=== PATIENT | female | born 1945 | race Asian ===

== ENCOUNTER 2016-10-27 16:30 | Inpatient (IN) | payer MEDICARE, OTHER ==
[2016-10-27] MEDS ORDERED: NORMAL SALINE 500 ML IV PRN (17:05)
--- NOTE | 2016-10-27 17:07 | ER Document Report ---
ED General - General Stated Complaint: DIZZINESS Time seen by provider: 17:06 Mode of Arrival: Medic Information source: Patient, Relative, Emergency Med Personnel Notes: This is a 71-year-old female with a history of sarcoidosis (PRN oxygen at home) , seizure disorder (status post craniotomy in 1988) who was followed at [facility]. The patient is brought in by EMS after being found face down in the kitchen right beside her recliner. It is unclear if the patient fell out of the chair slid out of the chair. The patient's son put a pulse oximeter on the patient the oxygen level was 75. He applied 4 L nasal cannula and her oxygen came back. The patient states that she said she was dizzy and her skin felt very hot. Her temperature was 103 when EMS arrived and she was given acetaminophen and 100 mL's normal saline. In the emergency room, the patient does have a nonproductive cough. She states she has felt a little dizzy. She denies any chest pain at this time. TRAVEL OUTSIDE OF THE [place] IN LAST 30 DAYS: No - HPI Onset: Just prior to arrival Onset/Duration: Sudden Quality of pain: No pain Severity: None Pain Level: Denies Associated symptoms: Chest pain, Nonproductive cough, Fever, Shortness of breath , Weakness Exacerbated by: Movement Relieved by: Remaining still - Related Data Allergies/Adverse Reactions: Sulfa (Sulfonamide Antibiotics) Allergy (Verified 10/27/16 17:49) Past Medical History - General Information source: Patient, Relative, Emergency Med Personnel - Social History Smoking Status: Unknown if Ever Smoked Cigarette use (# per day): No Chew tobacco use (# tins/day): No Frequency of alcohol use: None Drug Abuse: None Lives with: Family Family History: None Patient has suicidal ideation: No Patient has homicidal ideation: No - Past Medical History Cardiac Medical History: Reports: None Pulmonary Medical History: Reports: Other - Sarcoidosis EENT Medical History: Reports: None Neurological Medical History: Reports: Hx Seizures Endocrine Medical History: Reports: None Renal/ Medical History: Reports: None Malignancy Medical History: Reports: None GI Medical History: Reports: None Musculoskeltal Medical History: Reports None Skin Medical History: Reports None Psychiatric Medical History: Reports: None Traumatic Medical History: Reports: None Infectious Medical History: Reports: Other - History of pneumonia in the past Past Surgical History: Reports: Other - Craniotomy in 1988 Review of Systems - Review of Systems Constitutional: Chills, Fever, Weakness EENT: No symptoms reported Cardiovascular: No symptoms reported Respiratory: Cough, Short of breath. denies: Hemoptysis, Wheezing Gastrointestinal: No symptoms reported Genitourinary: No symptoms reported Female Genitourinary: No symptoms reported Musculoskeletal: No symptoms reported Skin: No symptoms reported Hematologic/Lymphatic: No symptoms reported Neurological/Psychological: See HPI Physical Exam - Vital signs Vitals: Temp Pulse Resp BP Pulse Ox 99.2 F 90 22 H 101/43 L 94 10/27/16 17:10 10/27/16 17:10 10/27/16 17:10 10/27/16 17:10 10/27/16 17:10 Notes: Physical exam: GENERAL: A 11-year-old female, alert and oriented 3, no acute distress on oxygen. HEAD: Atraumatic, normocephalic. EYES: Pupils equal round and reactive to light, extraocular movements intact, sclera anicteric, conjunctiva are normal. ENT: TMs normal, nares patent, oropharynx clear without exudates. Moist mucous membranes. NECK: Normal range of motion, supple without lymphadenopathy or JVD. LUNGS: Diffuse rhonchi bilaterally, greater on the left than the right. HEART: Regular rate and rhythm with 3/6 systolic murmur. ABDOMEN: Soft, nontender, normoactive bowel sounds. No guarding, no rebound. No masses appreciated. EXTREMITIES: Normal range of motion, no pitting or edema. No clubbing or cyanosis. NEUROLOGICAL: Cranial nerves II through XII grossly intact. Normal speech, normal gait. PSYCH: Normal mood, normal affect. SKIN: Warm, Dry, normal turgor, no rashes or lesions noted. Course - Re-evaluation Re-evalutation: 10/27/16 18:50 Note: The patient presents after syncopal event at home in which she was found face down on the floor. She was hypoxic at home (compared to her baseline). She has a chronic cough, but now has high fever (103). She does have underlying sarcoidosis. The chest x-ray shows extensive infiltrates predominantly on the left side. This is consistent with her physical exam. The concern is that there is an acute infiltrate within the chronic lung disease given her spiking high temperature, increased white count and worsening hypoxia. She was started on IV cefepime and IV vancomycin and she will be admitted to the hospital. - Vital Signs Vital signs: Temp Pulse Resp BP Pulse Ox 99.2 F 90 22 H 101/43 L 94 10/27/16 17:10 10/27/16 17:10 10/27/16 17:10 10/27/16 17:10 10/27/16 17:10 - Laboratory Result Diagrams: 10/27/16 17:20 10/27/16 17:20 Laboratory results interpreted by me: 10/27/16 10/27/16 10/27/16 17:20 17:20 17:20 WBC 12.7 H RBC 2.52 L Hgb 8.7 L Hct 26.6 L MCV 106 H MCH 34.6 H Lymphocytes % (Manual) 5 L Monocytes % (Manual) 19 H Abs Neuts (Manual) 9.4 H Abs Monocytes (Manual) 2.4 H Sodium 132.0 L Chloride 93 L Glucose 167 H Albumin 2.8 L Phenytoin < 3.0 L - Diagnostic Test Radiology reviewed: Image reviewed, Reports reviewed - Extensive opacities in the left lung. Critical Care Note - Critical Care Note Total time excluding time spent on procedures (mins): 60 Discharge - Discharge Clinical Impression: pneumonia Condition: Serious Disposition: ADMITTED INPATIENT Admitting Provider: Hospitalist - Dr. Duke Unit Admitted: IMCU Referrals: JACOBO MCFARLANE MD [Primary Care Provider] - Follow up as needed
[2016-10-27 17:37] LABS: HEMATOCRIT 26.6 % (36.0-47.0); HEMOGLOBIN 8.7 g/dL (12.0-15.5); HGB HCT DIFFERENCE -0.5; MEAN CORPUSCULAR HEMOGLOBIN 34.6 pg (27.0-33.4); MEAN CORPUSCULAR HGB CONC 32.7 g/dL (32.0-36.0); MEAN CORPUSCULAR VOLUME 106 fl (80-97); RED BLOOD COUNT 2.52 10^6/uL (3.72-5.28); WHITE BLOOD COUNT 12.7 10^3/uL (4.0-10.5)
[2016-10-27 17:54] LABS: BAND NEUTROPHILS % (MANUAL) 3 % (3-5); BASOPHILS % (MANUAL) 0 % (0-2); EOSINOPHILS % (MANUAL) 1 % (0-6); LYMPHOCYTES % (MANUAL) 5 % (13-45); TOTAL CELLS COUNTED 100
[2016-10-27 17:57] LABS: ALANINE AMINOTRANSFERASE 22 U/L (9-52); ALBUMIN 2.8 g/dL (3.5-5.0); ALKALINE PHOSPHATASE 87 U/L (38-126); ANION GAP 10 (5-19); ASPARTATE AMINO TRANSFERASE 32 U/L (14-36); BILIRUBIN,TOTAL 0.4 mg/dL (0.2-1.3); BLOOD UREA NITROGEN 14 mg/dL (7-20); CALCIUM 8.6 mg/dL (8.4-10.2); CARBON DIOXIDE 29 mmol/L (22-30); CHLORIDE 93 mmol/L (98-107); CREATININE RESULT 0.61 mg/dL (0.52-1.25); GLUCOSE 167 mg/dL (75-110); POTASSIUM 4.2 mmol/L (3.6-5.0)
[2016-10-27] MEDS ORDERED: CEFTRIAXONE 2 GM/D5W RTU 50 ML IV ONE (18:05)
[2016-10-27] MEDS ORDERED: CEFEPIME 1 GM/D5W RTU 50 ML IV ONE (18:09)
[2016-10-27] MEDS ORDERED: VANCOMYCIN HCL INJ 1000 MG VIAL IV ONE (18:09)
[2016-10-27] MEDS ORDERED: CEFEPIME 1 GM/D5W RTU 1 GM/50 ML RTUPB IV ONE ×2 (18:41→22:00)
[2016-10-27] MEDS ORDERED: NORMAL SALINE 1000 ML 1,000 ML IV PRN (18:45)
[2016-10-27 18:54] LABS: ARTERIAL BLOOD BASE EXCESS 3.7 mmol/L
--- NOTE | 2016-10-27 19:03 | PDOC H&P ---
History of Present Illness Admission Date/PCP: MILAN MCFARLANE MD Patient complains of: SOB , fever History of Present Illness: GRABIEL MALIN is a 71 year old female Who was brought to the ED with a history of fever chills and a cough Patient had been ill for week she was seen in another emergency room 4 days ago and was discharged with the diagnosis of viral syndrome Shortness of breath the fever persisted; Upon evaluation in the ED she was diagnosed of pneumonia and subsequently admitted to the hospitalist service in an IMCU unit Patient has a known history of sarcoidosis ;seizure disorder; she is status post craniotomy 1988 She is immunosuppressed on methotrexate Past Medical History Pulmonary Medical History: Reports: Other - Sarcoidosis Neurological Medical History: Reports: Seizures Past Surgical History Past Surgical History: Reports: None Social History Information Source: Patient Smoking Status: Never Smoker Frequency of Alcohol Use: None Hx Prescription Drug Abuse: No - Advance Directive Resuscitation Status: Full Code Surrogate healthcare decision maker:: hannah Shore Family History Parental Family History Reviewed: No Children Family History Reviewed: No Sibling(s) Family History Reviewed.: No Medication/Allergy Allergies/Adverse Reactions: Sulfa (Sulfonamide Antibiotics) Allergy (Verified 10/27/16 17:49) Review of Systems Constitutional: PRESENT: chills, fever(s). ABSENT: headache(s), weight gain, weight loss Eyes: ABSENT: visual disturbances Ears: ABSENT: hearing changes Cardiovascular: ABSENT: chest pain, dyspnea on exertion, edema, orthropnea, palpitations Respiratory: PRESENT: as per HPI, cough, dyspnea, sputum. ABSENT: hemoptysis Gastrointestinal: ABSENT: abdominal pain, constipation, diarrhea, hematemesis, hematochezia, nausea, vomiting Genitourinary: ABSENT: dysuria, hematuria Musculoskeletal: ABSENT: joint swelling Integumentary: ABSENT: rash, wounds Neurological: ABSENT: abnormal gait, abnormal speech, confusion, dizziness, focal weakness, syncope Psychiatric: ABSENT: anxiety, depression, homidical ideation, suicidal ideation Endocrine: ABSENT: cold intolerance, heat intolerance, polydipsia, polyuria Hematologic/Lymphatic: ABSENT: easy bleeding, easy bruising Physical Exam Vital Signs: Temp Pulse Resp BP Pulse Ox 99.2 F 90 22 H 101/43 L 94 10/27/16 17:10 10/27/16 17:10 10/27/16 17:10 10/27/16 17:10 10/27/16 17:10 Intake & Output 10/26/16 10/27/16 10/28/16 00:59 00:59 00:59 Weight 39.916 kg General appearance: PRESENT: no acute distress, well-developed, well-nourished Head exam: PRESENT: atraumatic, normocephalic Eye exam: PRESENT: conjunctiva pink, EOMI, PERRLA. ABSENT: scleral icterus Ear exam: PRESENT: normal external ear exam Mouth exam: PRESENT: moist, tongue midline Neck exam: ABSENT: carotid bruit, JVD, lymphadenopathy, thyromegaly Respiratory exam: PRESENT: crackles, retraction, rhonchi, unlabored. ABSENT: rales, tachypnea, wheezes Cardiovascular exam: PRESENT: RRR. ABSENT: diastolic murmur, rubs, systolic murmur Pulses: PRESENT: normal dorsalis pedis pul Vascular exam: PRESENT: normal capillary refill GI/Abdominal exam: PRESENT: normal bowel sounds, soft. ABSENT: distended, guarding, mass, organolmegaly, rebound, tenderness Rectal exam: PRESENT: deferred Extremities exam: PRESENT: full ROM. ABSENT: calf tenderness, clubbing, pedal edema Neurological exam: PRESENT: alert, awake, oriented to person, oriented to place , oriented to time, oriented to situation, CN II-XII grossly intact. ABSENT: motor sensory deficit Psychiatric exam: PRESENT: appropriate affect, normal mood. ABSENT: homicidal ideation, suicidal ideation Skin exam: PRESENT: dry, intact, warm. ABSENT: cyanosis, rash Results Laboratory Results: 10/27/16 17:20 10/27/16 17:20 10/27/16 10/27/16 10/27/16 17:20 17:20 17:20 WBC 12.7 H RBC 2.52 L Hgb 8.7 L Hct 26.6 L MCV 106 H MCH 34.6 H MCHC 32.7 RDW 14.0 Plt Count 273 Seg Neutrophils % Not Reportable Lymphocytes % Not Reportable Monocytes % Not Reportable Eosinophils % Not Reportable Basophils % Not Reportable Absolute Neutrophils Not Reportable Absolute Lymphocytes Not Reportable Absolute Monocytes Not Reportable Absolute Eosinophils Not Reportable Absolute Basophils Not Reportable Sodium 132.0 L Potassium 4.2 Chloride 93 L Carbon Dioxide 29 Anion Gap 10 BUN 14 Creatinine 0.61 Est GFR ( Amer) > 60 Est GFR (Non-Af Amer) > 60 Glucose 167 H Lactic Acid 1.6 Calcium 8.6 Total Bilirubin 0.4 AST 32 ALT 22 Alkaline Phosphatase 87 Total Protein 7.0 Albumin 2.8 L Impressions: Chest X-Ray 10/27/16 17:09 IMPRESSION: Progressive but otherwise chronic appearing changes. Patient appears to have significant interstitial lung disease and pulmonary fibrosis. Assessment & Plan - Time Time Spent with patient: 1 sepsis Patient is immunocompromised and has evidence of pneumonia We will start the patient with cefepime and Levaquin ; continue IV fluids and provide O2 supplementation via cannula. 2- Pneumonia Treatment as above we will obtain sputum culture Give the patient until nebs and Mucinex 3 immunosuppression We will hold methotrexate at this time 4 acute on chronic anemia Likely anemia of chronic disease Initiate a workup in the morning Patient does not need transfusion at this time 5 seizure disorder We will continue patient's present medications Patient was admitted as an inpatient to IMCU Time Spent: 50 to 70 Minutes
[2016-10-27 19:22] LABS: APPEARANCE,URINE CLEAR; BILIRUBIN,URINE NEGATIVE (NEGATIVE); GLUCOSE, URINE NEGATIVE (NEGATIVE); KETONES,URINE NEGATIVE (NEGATIVE); LEUKOCYTE ESTERASE,URINE SMALL (NEGATIVE); NITRITE,URINE NEGATIVE (NEGATIVE); PROTEIN,URINE NEGATIVE (NEGATIVE); URINE SPECIFIC GRAVITY 1.019; UROBILINOGEN,URINE NEGATIVE mg/dL (<2.0)
[2016-10-27] MEDS ORDERED: LEVOFLOXACIN 750 MG/D5W RTU 750 MG/150 ML RTUPB IV ONE (20:00)
[2016-10-27] MEDS ORDERED: FAMOTIDINE 20 MG TABLET PO ONE (22:00)
[2016-10-28] MEDS ORDERED: IPRATROPIUM/ALBUTEROL 0.5-2.5 MG/3 ML AMPUL NEB SCH (06:00)
[2016-10-28] MEDS ORDERED: ENOXAPARIN SODIUM INJ 40 MG/0.4 ML DISP.SYRIN SUBCUT SCH (08:00)
[2016-10-28] MEDS: ENOXAPARIN SODIUM INJ 30 MG/0.3 ML DISP.SYRIN SUBCUT SCH (08:56)
[2016-10-28] MEDS: CEFEPIME 1 GM/D5W RTU 1 GM/50 ML RTUPB IV SCH ×2 (09:37→22:12)
[2016-10-28 09:41] LABS: HEMATOCRIT 25.5 % (36.0-47.0); HEMOGLOBIN 8.5 g/dL (12.0-15.5); MEAN CORPUSCULAR HEMOGLOBIN 35.2 pg (27.0-33.4); MEAN CORPUSCULAR HGB CONC 33.2 g/dL (32.0-36.0); MEAN CORPUSCULAR VOLUME 106 fl (80-97); RED CELL DISTRIBUTION WIDTH 14.1 % (11.5-14.0); WHITE BLOOD COUNT 15.1 10^3/uL (4.0-10.5)
[2016-10-28 09:48] LABS: ALANINE AMINOTRANSFERASE 21 U/L (9-52); ALBUMIN 2.6 g/dL (3.5-5.0); ALKALINE PHOSPHATASE 76 U/L (38-126); ANION GAP 6 (5-19); ASPARTATE AMINO TRANSFERASE 27 U/L (14-36); BILIRUBIN,TOTAL 0.4 mg/dL (0.2-1.3); BLOOD UREA NITROGEN 8 mg/dL (7-20); CALCIUM 8.4 mg/dL (8.4-10.2); CARBON DIOXIDE 30 mmol/L (22-30); CHLORIDE 98 mmol/L (98-107); CREATININE RESULT 0.48 mg/dL (0.52-1.25); GLUCOSE 106 mg/dL (75-110); POTASSIUM 4.6 mmol/L (3.6-5.0); SODIUM 133.6 mmol/L (137-145); TOTAL PROTEIN 6.9 g/dL (6.3-8.2)
[2016-10-28 10:12] LABS: BASOPHILS % (MANUAL) 0 % (0-2); EOSINOPHILS % (MANUAL) 0 % (0-6); HYPOCHROMASIA 1+; LYMPHOCYTES % (MANUAL) 5 % (13-45); ROULEAUX 2+; STOMATOCYTES SLIGHT; TOTAL CELLS COUNTED 100; TOXIC GRANULATION 1+
[2016-10-28] MEDS ORDERED: FUROSEMIDE INJ/PF 20 MG/2 ML SDV IV ONE (12:45)
[2016-10-28] MEDS ORDERED: PREDNISONE 20 MG TABLET PO ONE (13:30)
[2016-10-28] MEDS: FAMOTIDINE 20 MG TABLET PO SCH ×2 (13:58→22:32)
--- NOTE | 2016-10-28 15:20 | Physician Advisory Note ---
Physician Advisor ProgressNote .: Pursuant to the plan for [facility], I have reviewed the medical record for this patient. Physician Advisor Statement: Possible documentation opportunities if attending agrees: 1. "possible sepsis due to pneumonia, present on admission, ruled out/in, with supporting findings of fever of 103.1 for EMS, RR22, WBC 12.7, BP 101/43 [ initial MAP 67] ..." 2. "RLL pneumonia, suspect gram-negative type given underlying lung dz & immunocompromise" 3. "chronic hypoxemic & hypercapneic respiratory failure w/pCO2 of 50.1 & baseline need for 3L O2" [Home O2 per initial ED nsg/triage note] 4. "Chronic interstitial lung dz with end-stage pulmonary fibrosis & widespread bronchiectasis" 5. Please clarify documentation of H&P 10/27 stating on PE: " ... retractions, ... unlabored, no accessory muscle use" - appears contradictory. 6. "hyponatremia, likely due to " 7. "underweight with protein-calorie malnutrition [state mild, mod, or severe] with BMI 17.2, Cr 0.48, alb 2.6, ____[?wt loss, ?appetite loss, ]" [if possible, give specifics on intake, wt loss, loss of SQ fat & muscle mass, diminished hand machine operator farmworker strength, & clinical importance such as (A) nutritional assessment ordered, (B) modified diet or supplements ordered, (C) additional labs ordered, (D) prolonged wound healing time, (E) delayed infxn clearance] - - - Auditors are strict about the dx of malnutrition - has to be explicitly spelled out. As always, if concerned about any unstable VS or abnormal labs, please comment on them & note what doing about them, & please document each day the potential clinical problems you are concerned could occur if pt not kept in hospital for tx at this time. Status: 71yo w/sarcoidosis & MTX immunosuppression, chronic hypercarbia, underlying severely abnormal lung parenchyma, widespread bronchiectasis, findings of advanced end-stage pulm fibrosis by CT, anemia, previous craniotomy & sz d/o, presented with F/C/cough/SOB/sputum x 1wk that was failing outpt mgmt from ED 4 days prior. ED nurse documents EMS found temp 103.1 & gave Tylenol. Initial sats reportedly 75% but that was on RA for family, pt usually on 3L O2; sat 94% for EMS on O2 2 or 3L. Came in with leukocytosis of 12.7 (prior to any steroids being given), HR 90, tachypnea of 22, BP 101/43, temp 99.2, crackles, rhonchi, retractions, pCO2 of 50.1 w/pH 7.39, Hgb 8.9, Na 132, lactate 1.6. H&P documents (+)retractions present. Her underlying co-morbidities make any new pulmonary decompensation/insult to be much highe risk for morbidity & mortality. Her increased work of breathing per H&P, & tachypnea indicate that much higher risk of Acute Resp Failure developing. After 1MN of hospital care, pt's leukocytosis has worsened to 15.1, prior to receiving any steroids (prednisone po given 10/28 at 14:01), TIBC is 181 consistent with chronic anemia of chronic ___ dz, & BNP is quite abnormal at 1450 (which can indicate presence of CHF, but also increase with ischemia, hypotension, pulmonary HTN, cor pulmonale, sepsis). She has had recurrent tachypnea & tachycardia. Pt clearly not safe for d/c home today, needs continued aggressive tx & close monitoring of clinical status/response, high risk for morbidity/mortality. Tx in inpatient hospital setting medically reasonable & necessary to protect pt' s health, safety, & medical condition. Appropriate for Inpt status. Thanks for your help with documentation accuracy/specificity improvement! Erika Galarza MD [facility] Physician Advisor, Fellow of Hospital Medicine
--- NOTE | 2016-10-28 15:23 | PDOC PROGRESS REPORT ---
Subjective Progress Note for:: 10/28/16 Subjective:: SOB still persistent no pleuritic chest pain CTA chest was performed and showed advanced pulmonary fibrosis , right upper lobe infiltrate no PE Echo is pending DR Steven Dumont will be consulting on the case Physical Exam Vital Signs: Temp Pulse Resp BP Pulse Ox 98.9 F 90 21 H 119/57 L 100 10/28/16 09:01 10/27/16 17:10 10/28/16 09:01 10/28/16 09:01 10/28/16 08:49 General appearance: PRESENT: mild distress, thin Head exam: PRESENT: atraumatic, normocephalic Eye exam: PRESENT: conjunctiva pink, EOMI, PERRLA. ABSENT: scleral icterus Neck exam: ABSENT: carotid bruit, JVD, lymphadenopathy, thyromegaly Respiratory exam: PRESENT: decreased breath sounds, rales - bilaterally, tachypnea Cardiovascular exam: PRESENT: RRR, tachycardia. ABSENT: diastolic murmur, rubs , systolic murmur Vascular exam: PRESENT: normal capillary refill Extremities exam: PRESENT: full ROM. ABSENT: calf tenderness, clubbing, pedal edema Neurological exam: PRESENT: alert, awake, oriented to person, oriented to place , oriented to time, oriented to situation, CN II-XII grossly intact. ABSENT: motor sensory deficit Psychiatric exam: PRESENT: appropriate affect, normal mood. ABSENT: homicidal ideation, suicidal ideation Skin exam: PRESENT: dry, intact, warm. ABSENT: cyanosis, rash Results Laboratory Results: 10/28/16 09:21 10/28/16 09:21 10/27/16 10/28/16 10/28/16 18:58 09:21 09:21 WBC 15.1 H RBC 2.40 L Hgb 8.5 L Hct 25.5 L MCV 106 H MCH 35.2 H MCHC 33.2 RDW 14.1 H Plt Count 293 Seg Neutrophils % Not Reportable Lymphocytes % Not Reportable Monocytes % Not Reportable Eosinophils % Not Reportable Basophils % Not Reportable Absolute Neutrophils Not Reportable Absolute Lymphocytes Not Reportable Absolute Monocytes Not Reportable Absolute Eosinophils Not Reportable Absolute Basophils Not Reportable Retic Count (auto) 1.21 Absolute Retic 0.029 Sodium 133.6 L Potassium 4.6 Chloride 98 Carbon Dioxide 30 Anion Gap 6 BUN 8 Creatinine 0.48 L Est GFR ( Amer) > 60 Est GFR (Non-Af Amer) > 60 Glucose 106 Calcium 8.4 Iron 43 TIBC 181 L % Saturation 24 Ferritin 306.00 H Total Bilirubin 0.4 AST 27 ALT 21 Alkaline Phosphatase 76 Total Protein 6.9 Albumin 2.6 L Vitamin B12 > 1000.0 H Folate 17.40 TSH Urine Color YELLOW Urine Appearance CLEAR Urine pH 6.0 Ur Specific [place] 1.019 Urine Protein NEGATIVE Urine Glucose (UA) NEGATIVE Urine Ketones NEGATIVE Urine Blood SMALL H Urine Nitrite NEGATIVE Ur Leukocyte Esterase SMALL H Urine WBC (Auto) 3 Urine RBC (Auto) 7 10/28/16 09:21 WBC RBC Hgb Hct MCV MCH MCHC RDW Plt Count Seg Neutrophils % Lymphocytes % Monocytes % Eosinophils % Basophils % Absolute Neutrophils Absolute Lymphocytes Absolute Monocytes Absolute Eosinophils Absolute Basophils Retic Count (auto) Absolute Retic Sodium Potassium Chloride Carbon Dioxide Anion Gap BUN Creatinine Est GFR ( Amer) Est GFR (Non-Af Amer) Glucose Calcium Iron TIBC % Saturation Ferritin Total Bilirubin AST ALT Alkaline Phosphatase Total Protein Albumin Vitamin B12 Folate TSH 1.12 Urine Color Urine Appearance Urine pH Ur Specific [place] Urine Protein Urine Glucose (UA) Urine Ketones Urine Blood Urine Nitrite Ur Leukocyte Esterase Urine WBC (Auto) Urine RBC (Auto) 10/28/16 09:21 NT-Pro-B Natriuret Pep 1450 H Impressions: Chest X-Ray 10/27/16 17:09 IMPRESSION: Progressive but otherwise chronic appearing changes. Patient appears to have significant interstitial lung disease and pulmonary fibrosis. Chest/Abdomen CTA 10/28/16 11:32 IMPRESSION: No CT angio evidence of acute pulmonary emboli Airspace disease in the superior segment right lower lobe worrisome for pneumonia Advanced obstructive lung disease and pulmonary fibrosis Assessment & Plan - Time Time Spent with patient: Time Spent with patient: 1 sepsis Patient is immunocompromised and has evidence of pneumonia We will start the patient with cefepime and Levaquin ; continue IV fluids and provide O2 supplementation via cannula. CTA chest confirmed pneumonia with infiltrate RtUL 2- Pneumonia Treatment as above we will obtain sputum culture Give the patient until nebs and Mucinex 3 immunosuppression We will hold methotrexate at this time 4 acute on chronic anemia Likely anemia of chronic disease Initiate a workup in the morning Patient does not need transfusion at this time 5 seizure disorder We will continue patient's present medications 6-pulmonary fibrosis -sarcoidosis secondary fo sarcoidosis ? could there be methotrexate toxicity CBC does not show eosinophilia - CT not suggestive Pulmonary consult obtained - in mean time we held methotrexate and initiated steroids 7- elevated BNP may be related to pulmonary hypertension and right sided heart failure siriae miley - Echo pending Within: within 72 hours
[2016-10-28] MEDS ORDERED: ACETAMINOPHEN 325 MG TABLET PO PRN (15:49)
[2016-10-28] MEDS: LEVOFLOXACIN 750 MG/D5W RTU 750 MG/150 ML RTUPB IV SCH (17:37)
[2016-10-28] MEDS: DIVALPROEX SODIUM 250 MG TABLET.DR PO SCH (17:39)
[2016-10-28] MEDS ORDERED: (PENDING PHARMACY ID) (Divalproex Sodium [Depakote] 500 MG) PO SCH (18:00)
--- NOTE | 2016-10-28 18:07 | XCELERA REPORT ---
[address] [address] Transthoracic Echocardiogram Report Name: GRABIEL MALIN Age: 71 yrs Gender: Female : 1945 Patient Status: Inpatient Patient Location: \S\[facility] [place]\S\A Study Date: 10/28/2016 02:53 PM Height: 60 in Weight: 88 lb BSA: 1.3 m2 Procedure: A two-dimensional transthoracic echocardiogram with color flow and Doppler was performed. The study was technically limited with all images being suboptimal in quality. Reason For Study: SONB elevated BNP History: Shortness of breath. ELEVATED BNP. Ordering Physician: CHIRAG PIÑA Performed By: Margot Paige Interpretation Summary The left ventricle is normal in size. There is normal left ventricular wall thickness. LV EF is > than 65% Left ventricular systolic function is normal. Doppler measurements suggest impaired left ventricular relaxation, which is associated with grade I/IV or mild diastolic dysfunction The left ventricular wall motion is normal. The left atrial size is normal. There is no evidence of mitral valve prolapse. There is no vegetation seen on the mitral valve. There is no mitral valve stenosis. There is a mild amount of mitral regurgitation There is no aortic valve stenosis There is no LVOT obstruction. No aortic regurgitation is present. There is no tricuspid stenosis. There is a mild amount of tricuspid regurgitation There is mild pulmonary hypertension by echo RVSP is 37 mm of Hg , with a RA mean of 10. The aortic root is normal size. There is no pericardial effusion. MMode/2D Measurements \T\ Calculations RVDd: 2.1 cm LVIDd: 3.3 cm FS: 40.7 % Ao root diam: 1.9 cm IVSd: 0.87 cm LVIDs: 1.9 cm EDV(Teich): 43.1 ml LVPWd: 0.85 cm ESV(Teich): 11.8 ml Ao root area: 2.8 cm2 EF(Teich): 72.7 % LA dimension: 2.7 cm Doppler Measurements \T\ Calculations MV E max lucero: MV P1/2t max lucero: Ao V2 max: LV V1 max P.6 cm/sec 69.6 cm/sec 132.1 cm/sec 5.9 mmHg MV A max lucero: MV P1/2t: 56.9 msec Ao max PG: LV V1 max: 84.4 cm/sec 7.0 mmHg 121.4 cm/sec MV E/A: 0.82 MVA(P1/2t): 3.9 cm2 MV dec slope: 358.2 cm/sec2 MV dec time: 0.19 sec PA V2 max: PI end-d lucero: TR max lucero: 127.8 cm/sec 214.5 cm/sec 259.3 cm/sec PA max PG: TR max P.5 mmHg 26.9 mmHg Left Ventricle The left ventricle is normal in size. There is normal left ventricular wall thickness. LV EF is > than 65%. Left ventricular systolic function is normal. Doppler measurements suggest impaired left ventricular relaxation, which is associated with grade I/IV or mild diastolic dysfunction. The left ventricular wall motion is normal. There is no thrombus. Right Ventricle The right ventricle is normal in size and function. Atria The right atrium is normal. The left atrial size is normal. Mitral Valve There is no evidence of mitral valve prolapse. There is no vegetation seen on the mitral valve. There is no mitral valve stenosis. There is a mild amount of mitral regurgitation. Aortic Valve The aortic valve is trileaflet. The aortic valve opens well. There is no aortic valvular vegetation. There is no aortic valve stenosis. There is no LVOT obstruction. No aortic regurgitation is present. Tricuspid Valve There is no tricuspid stenosis. There is a mild amount of tricuspid regurgitation. There is mild pulmonary hypertension by echo. RVSP is 37 mm of Hg , with a RA mean of 10. Pulmonic Valve There is no pulmonic valvular stenosis. There is a mild amount of pulmonic regurgitation. Great Vessels The aortic root is normal size. Effusions There is no pericardial effusion. : CHIRAG PIÑA > Tara Wiseman
[2016-10-28] MEDS: IPRATROPIUM/ALBUTEROL 0.5-2.5 MG/3 ML AMPUL NEB SCH (20:15)
[2016-10-28] MEDS: LANSOPRAZOLE 30 MG TAB.RAP.DR PO SCH (22:32)
[2016-10-28] MEDS: FOLIC ACID 1 MG TABLET PO SCH (22:32)
[2016-10-28] MEDS: FLUTICASONE/SALMETEROL DISKUS 250-50 MCG/DOSE IH SCH (22:32)
[2016-10-28] MEDS: PHENYTOIN SODIUM EXTENDED 100 MG CAPSULE PO SCH (22:33)
--- NOTE | 2016-10-28 23:55 | EKG REPORT ---
SEVERITY:- ABNORMAL ECG - SINUS RHYTHM ATRIAL PREMATURE COMPLEX PROBABLE LEFT ATRIAL ABNORMALITY LEFT VENTRICULAR HYPERTROPHY ABNORMAL T, CONSIDER ISCHEMIA, ANT-LAT LEADS : Confirmed by: Julienne Esteves 28-Oct-2016 23:54:56
[2016-10-29] MEDS: DIVALPROEX SODIUM 250 MG TABLET.DR PO SCH ×2 (05:28→21:43)
[2016-10-29] MEDS: IPRATROPIUM/ALBUTEROL 0.5-2.5 MG/3 ML AMPUL NEB SCH ×3 (08:06→20:16)
[2016-10-29] MEDS: PHENYTOIN SODIUM EXTENDED 100 MG CAPSULE PO SCH ×2 (09:29→21:42)
[2016-10-29] MEDS: FAMOTIDINE 20 MG TABLET PO SCH ×2 (09:30→21:43)
[2016-10-29] MEDS: PREDNISONE 20 MG TABLET PO SCH (09:30)
[2016-10-29] MEDS: CEFEPIME 1 GM/D5W RTU 1 GM/50 ML RTUPB IV SCH ×2 (09:31→21:42)
[2016-10-29] MEDS: LORATADINE 10 MG TABLET PO SCH (09:31)
[2016-10-29] MEDS: FLUTICASONE/SALMETEROL DISKUS 250-50 MCG/DOSE IH SCH ×2 (09:32→21:43)
[2016-10-29] MEDS: ENOXAPARIN SODIUM INJ 30 MG/0.3 ML DISP.SYRIN SUBCUT SCH (09:32)
[2016-10-29] MEDS ORDERED: PREDNISONE 20 MG TABLET PO SCH ×2 (10:00)
--- NOTE | 2016-10-29 13:28 | PDOC PROGRESS REPORT ---
Subjective Progress Note for:: 10/29/16 Subjective:: GRABIEL MALIN is a 71 year old female Who was brought to the ED with a history of fever chills and a cough Patient had been ill for week she was seen in another emergency room 4 days ago and was discharged with the diagnosis of viral syndrome Shortness of breath the fever persisted; Upon evaluation in the ED she was diagnosed of pneumonia and subsequently admitted to the hospitalist service in an IMCU unit Patient has a known history of sarcoidosis ;seizure disorder; she is status post craniotomy 1989 She is immunosuppressed on methotrexate CTA chest was performed and showed advanced pulmonary fibrosis , right upper lobe infiltrate no PE. echo shows FE>65%, mild TR, mild HTN, Gr1 DD; no wall motion abnl's. Some improved today, states her breathing is improved. Continues with cough nonproductive. ROS: Total 10 systems are reviewed with the patient pertinent positives and negatives noted about her main systems are negative. Physical Exam Vital Signs: Temp Pulse Resp BP Pulse Ox 97.3 F 74 18 105/66 100 10/29/16 11:33 10/29/16 11:33 10/29/16 11:33 10/29/16 11:33 10/29/16 11:33 Intake & Output 10/28/16 10/29/16 10/30/16 06:59 06:59 06:59 Intake Total 135 Balance 135 Weight 45.3 kg General appearance: PRESENT: no acute distress, thin Head exam: PRESENT: atraumatic, normocephalic Eye exam: PRESENT: conjunctiva pink, EOMI, PERRLA. ABSENT: scleral icterus Mouth exam: PRESENT: moist, tongue midline Neck exam: ABSENT: JVD, lymphadenopathy Respiratory exam: PRESENT: rhonchi - Diffuse rhonchi. ABSENT: accessory muscle use, prolonged expiratory phas Cardiovascular exam: PRESENT: RRR. ABSENT: diastolic murmur, rubs, systolic murmur Pulses: PRESENT: normal radial pulses GI/Abdominal exam: PRESENT: normal bowel sounds, soft. ABSENT: distended, guarding, rebound, tenderness Extremities exam: ABSENT: calf tenderness, pedal edema Musculoskeletal exam: PRESENT: ambulatory Neurological exam: PRESENT: alert, awake, oriented to person, oriented to place , oriented to time Psychiatric exam: PRESENT: appropriate affect, normal mood Skin exam: PRESENT: dry, warm Results Laboratory Results: 10/28/16 09:21 10/28/16 09:21 10/28/16 10/28/16 10/29/16 09:21 19:30 01:34 Troponin I < 0.012 < 0.012 NT-Pro-B Natriuret Pep 1450 H 10/29/16 07:10 Troponin I < 0.012 NT-Pro-B Natriuret Pep Impressions: Chest X-Ray 10/27/16 17:09 IMPRESSION: Progressive but otherwise chronic appearing changes. Patient appears to have significant interstitial lung disease and pulmonary fibrosis. Chest/Abdomen CTA 10/28/16 11:32 IMPRESSION: No CT angio evidence of acute pulmonary emboli Airspace disease in the superior segment right lower lobe worrisome for pneumonia Advanced obstructive lung disease and pulmonary fibrosis Assessment & Plan - Diagnosis (1) Pneumonia Qualifiers: Pneumonia type: due to unspecified organism Is this a current diagnosis for this admission?: YesPlan: Immunosuppressed and at risk for gram-negative organisms and atypical organisms. Continue cefepime and Levaquin. No history of MRSA. (2) Sepsis Is this a current diagnosis for this admission?: YesPlan: Stable. Evidenced by leukocytosis and tachypnea with source (3) Immunosuppression Is this a current diagnosis for this admission?: YesPlan: Hold methotrexate. (4) Chronic anemia Is this a current diagnosis for this admission?: YesPlan: Stable H&H. No evidence for acute blood loss. (5) Seizure disorder Is this a current diagnosis for this admission?: YesPlan: Stable (6) Pulmonary fibrosis Is this a current diagnosis for this admission?: YesPlan: Sees Dr. Reilly asphalt roller operator at [facility]. Awaiting Dr. Harris to evaluate. Continue systemic steroids. (7) Elevated brain natriuretic peptide (BNP) level Is this a current diagnosis for this admission?: YesPlan: Unclear etiology. Unclear significance. Possibly right heart failure acutely due to respiratory distress, possibly due to diastolic dysfunction. (8) Sarcoidosis of lung Is this a current diagnosis for this admission?: YesPlan: As above - Time Time Spent with patient: 35 or more minutes Anticipated discharge: Home Within: within 48 hours - Case discussed with she and her son at the bedside all questions asked and answered to their satisfaction and they are in agreement with the treatment plan outlined.
[2016-10-29] MEDS: LEVOFLOXACIN 750 MG/D5W RTU 750 MG/150 ML RTUPB IV SCH (17:31)
[2016-10-29] MEDS: LACTOBACILLUS ACIDOPHILUS 250 MG TAB PO SCH (17:32)
[2016-10-29] MEDS: FOLIC ACID 1 MG TABLET PO SCH (21:42)
[2016-10-29] MEDS: LANSOPRAZOLE 30 MG TAB.RAP.DR PO SCH (21:42)
[2016-10-30] MEDS: IPRATROPIUM/ALBUTEROL 0.5-2.5 MG/3 ML AMPUL NEB SCH ×3 (08:34→20:44)
[2016-10-30] MEDS: ENOXAPARIN SODIUM INJ 30 MG/0.3 ML DISP.SYRIN SUBCUT SCH (09:49)
[2016-10-30] MEDS: DIVALPROEX SODIUM 250 MG TABLET.DR PO SCH ×2 (09:50→22:24)
[2016-10-30] MEDS: PREDNISONE 20 MG TABLET PO SCH (09:50)
[2016-10-30] MEDS: PHENYTOIN SODIUM EXTENDED 100 MG CAPSULE PO SCH ×2 (09:51→22:24)
[2016-10-30] MEDS: LACTOBACILLUS ACIDOPHILUS 250 MG TAB PO SCH ×2 (09:51→18:31)
[2016-10-30] MEDS: CEFEPIME 1 GM/D5W RTU 1 GM/50 ML RTUPB IV SCH ×2 (09:52→22:23)
[2016-10-30] MEDS: LORATADINE 10 MG TABLET PO SCH (09:52)
[2016-10-30] MEDS: FAMOTIDINE 20 MG TABLET PO SCH ×2 (09:52→22:24)
[2016-10-30] MEDS: FLUTICASONE/SALMETEROL DISKUS 250-50 MCG/DOSE IH SCH ×2 (09:53→22:23)
--- NOTE | 2016-10-30 12:01 | PDOC PROGRESS REPORT ---
Subjective Progress Note for:: 10/30/16 Subjective:: GRABIEL MALIN is a 71 year old female Who was brought to the ED with a history of fever chills and a cough Patient had been ill for week she was seen in another emergency room 4 days ago and was discharged with the diagnosis of viral syndrome Shortness of breath the fever persisted; Upon evaluation in the ED she was diagnosed of pneumonia and subsequently admitted to the hospitalist service in an IMCU unit Patient has a known history of sarcoidosis with pulmonary fibrosis ;seizure disorder; she is status post craniotomy 1989 She is immunosuppressed on methotrexate CTA chest was performed and showed advanced pulmonary fibrosis , right upper lobe infiltrate no PE. echo shows FE>65%, mild TR, mild HTN, Gr1 DD; no wall motion abnl's. Some improved today, states her breathing is improved. Continues with cough nonproductive. Has successfully weaned off supplemental O2. Feels very weak. ROS: Total 10 systems are reviewed with the patient pertinent positives and negatives noted about her main systems are negative. Physical Exam Vital Signs: Temp Pulse Resp BP Pulse Ox 97.5 F 89 16 124/62 99 10/30/16 07:25 10/30/16 08:34 10/30/16 08:34 10/30/16 07:25 10/30/16 08:34 Intake & Output 10/29/16 10/30/16 10/31/16 06:59 06:59 06:59 Intake Total 135 895 Balance 135 895 Weight 45.3 kg 46 kg General appearance: PRESENT: no acute distress, thin Head exam: PRESENT: atraumatic, normocephalic Eye exam: PRESENT: conjunctiva pink, EOMI, PERRLA. ABSENT: scleral icterus Neck exam: ABSENT: JVD, lymphadenopathy Respiratory exam: PRESENT: rhonchi - Diffuse, mildly improved, unlabored. ABSENT: accessory muscle use Cardiovascular exam: PRESENT: RRR. ABSENT: diastolic murmur, rubs, systolic murmur Pulses: PRESENT: normal radial pulses Vascular exam: PRESENT: normal capillary refill GI/Abdominal exam: PRESENT: normal bowel sounds, soft. ABSENT: distended, guarding, rebound, tenderness Rectal exam: PRESENT: deferred Extremities exam: ABSENT: calf tenderness, pedal edema Musculoskeletal exam: PRESENT: ambulatory, full ROM Neurological exam: PRESENT: alert, awake, oriented to person, oriented to place , oriented to situation Psychiatric exam: PRESENT: appropriate affect, normal mood Skin exam: PRESENT: dry, warm Results Laboratory Results: 10/28/16 09:21 10/28/16 09:21 10/29/16 19:10 Stool Occult Blood NEGATIVE 10/28/16 10/28/16 10/29/16 09:21 19:30 01:34 Troponin I < 0.012 < 0.012 NT-Pro-B Natriuret Pep 1450 H 10/29/16 07:10 Troponin I < 0.012 NT-Pro-B Natriuret Pep Impressions: Chest X-Ray 10/27/16 17:09 IMPRESSION: Progressive but otherwise chronic appearing changes. Patient appears to have significant interstitial lung disease and pulmonary fibrosis. Chest/Abdomen CTA 10/28/16 11:32 IMPRESSION: No CT angio evidence of acute pulmonary emboli Airspace disease in the superior segment right lower lobe worrisome for pneumonia Advanced obstructive lung disease and pulmonary fibrosis Assessment & Plan - Diagnosis (1) Pneumonia Qualifiers: Pneumonia type: due to unspecified organism Is this a current diagnosis for this admission?: YesPlan: Immunosuppressed and at risk for gram-negative organisms and atypical organisms. Continue cefepime and Levaquin. No history of MRSA. (2) Sepsis Is this a current diagnosis for this admission?: YesPlan: Stable. Evidenced by leukocytosis and tachypnea with source (3) Immunosuppression Is this a current diagnosis for this admission?: YesPlan: Hold methotrexate. (4) Chronic anemia Is this a current diagnosis for this admission?: YesPlan: Stable H&H. No evidence for acute blood loss. Repeat labs in a.m. (5) Seizure disorder Is this a current diagnosis for this admission?: YesPlan: Stable (6) Pulmonary fibrosis Is this a current diagnosis for this admission?: YesPlan: Sees Dr. Reilly housing assistant property manager at [facility]. Awaiting Dr. Harris to evaluate. Continue systemic steroids. (7) Elevated brain natriuretic peptide (BNP) level Is this a current diagnosis for this admission?: YesPlan: Unclear etiology. Unclear significance. Possibly right heart failure acutely due to respiratory distress, possibly due to diastolic dysfunction. (8) Sarcoidosis of lung Is this a current diagnosis for this admission?: YesPlan: As above - Time Time Spent with patient: 25-34 minutes Anticipated discharge: Home Within: within 24 hours - Possibly home tomorrow if condition continues to improve. Awaiting pulmonology's input.
[2016-10-30] MEDS: FOLIC ACID 1 MG TABLET PO SCH (22:24)
[2016-10-30] MEDS: LANSOPRAZOLE 30 MG TAB.RAP.DR PO SCH (23:18)
[2016-10-31 05:00] LABS: HEMATOCRIT 26.4 % (36.0-47.0); HGB HCT DIFFERENCE 0.6; MEAN CORPUSCULAR HEMOGLOBIN 35.9 pg (27.0-33.4); MEAN CORPUSCULAR VOLUME 106 fl (80-97); RED CELL DISTRIBUTION WIDTH 14.4 % (11.5-14.0); WHITE BLOOD COUNT 10.6 10^3/uL (4.0-10.5)
[2016-10-31 05:13] LABS: BAND NEUTROPHILS % (MANUAL) 3 % (3-5); BASOPHILS % (MANUAL) 0 % (0-2); EOSINOPHILS % (MANUAL) 0 % (0-6); LYMPHOCYTES % (MANUAL) 8 % (13-45); TOTAL CELLS COUNTED 100
[2016-10-31 05:15] LABS: TOXIC VACUOLATION PRESENT
[2016-10-31] MEDS: IPRATROPIUM/ALBUTEROL 0.5-2.5 MG/3 ML AMPUL NEB SCH ×2 (08:08→13:50)
[2016-10-31] MEDS: ENOXAPARIN SODIUM INJ 30 MG/0.3 ML DISP.SYRIN SUBCUT SCH (09:02)
[2016-10-31] MEDS: CEFEPIME 1 GM/D5W RTU 1 GM/50 ML RTUPB IV SCH (10:51)
[2016-10-31] MEDS: FLUTICASONE/SALMETEROL DISKUS 250-50 MCG/DOSE IH SCH (10:51)
[2016-10-31] MEDS: PREDNISONE 20 MG TABLET PO SCH (10:52)
[2016-10-31] MEDS: DIVALPROEX SODIUM 250 MG TABLET.DR PO SCH (10:52)
[2016-10-31] MEDS: LORATADINE 10 MG TABLET PO SCH (10:52)
[2016-10-31] MEDS: FAMOTIDINE 20 MG TABLET PO SCH (10:53)
[2016-10-31] MEDS: LACTOBACILLUS ACIDOPHILUS 250 MG TAB PO SCH (10:53)
[2016-10-31] MEDS: PHENYTOIN SODIUM EXTENDED 100 MG CAPSULE PO SCH (10:53)
[2016-10-31 13:00] VITALS: BP 144/59
--- NOTE | 2016-10-31 14:58 | PDOC DISCHARGE SUMMARY ---
General - Admit/Disc Date/PCP Admission Date/Primary Care Provider: 10/27/16 18:45 MILAN MCFARLANE MD Discharge Date: 10/31/16 - Discharge Diagnosis (1) Pneumonia Is this a current diagnosis for this admission?: YesSummary: Markedly improved from presentation. Continue an additional 2 weeks of Levaquin. No specific pathogen ever identified. At risk for gram-negative organisms given the severity of her pulmonary fibrosis and fixed lung disease. (2) Sepsis Is this a current diagnosis for this admission?: Yes (3) Immunosuppression Is this a current diagnosis for this admission?: YesSummary: Continue systemic steroids with a long 3 week taper of prednisone hold methotrexate in the interim to allow her to recover from this pneumonia as best possible. Defer to her primary care provider and/or reverberatory skimmer regarding reinitiation of immunosuppressive therapy. (4) Chronic anemia Is this a current diagnosis for this admission?: YesSummary: Stable, no evidence for acute blood loss during this admission. (5) Seizure disorder Is this a current diagnosis for this admission?: Yes (6) Pulmonary fibrosis Is this a current diagnosis for this admission?: YesSummary: I spoke with Dr. Harris and he agrees with a long slow slow steroid taper, continue antibiotics, inhaled steroid and beta agonist and wants to see her in urgent follow-up within a week. (7) Elevated brain natriuretic peptide (BNP) level Is this a current diagnosis for this admission?: YesSummary: Unclear etiology, echo was unrevealing, I suspect related to her underlying respiratory disease. (8) Sarcoidosis of lung Is this a current diagnosis for this admission?: YesSummary: Defer to pulmonology regarding further treatment. - Additional Information Resuscitation Status: Full Code Discharge Diet: As Tolerated Discharge Activity: Activity As Tolerated Home Medications: Divalproex Sodium [Depakote] 500 mg PO Q12 10/27/16 Esomeprazole Magnesium [Nexium] 40 mg PO QHS 10/27/16 Fexofenadine HCl [Sara] 180 mg PO DAILY 10/27/16 Fluticasone/Salmeterol [Advair 250-50 Diskus 14 Dose/Diskus] 1 puff IH BID 10/27 Folic Acid 1 mg PO QHS 10/27/16 Phenytoin Sodium Extended [Dilantin 100 mg Capsule.er] 100 mg PO Q12 10/27/16 Acetaminophen [Tylenol 325 mg Tablet] 650 mg PO Q4HP PRN tablet 10/31/16 Lactobacillus Acidophilus [Acidophilus Probiotic] 1 mg PO BIDACBL #60 capsule Levofloxacin [Levaquin 750 mg Tablet] 750 mg PO QAM #14 tablet 10/31/16 Prednisone [Deltasone 20 mg Tablet] 60 mg PO DAILY #35 tablet 10/31/16 History of Present Illness Patient complains of: fever chills and a cough History of Present Illness: GRABIEL MALIN is a 71 year old female Who was brought to the ED with a history of fever chills and a cough Patient had been ill for week she was seen in another emergency room 4 days ago and was discharged with the diagnosis of viral syndrome Shortness of breath the fever persisted; Upon evaluation in the ED she was diagnosed of pneumonia and subsequently admitted to the hospitalist service in an IM unit Hospital Course Hospital Course: Patient has a known history of sarcoidosis with pulmonary fibrosis ;seizure disorder; she is status post craniotomy 1988 She is immunosuppressed on methotrexate CTA chest was performed and showed advanced pulmonary fibrosis , right upper lobe infiltrate no PE. echo shows FE>65%, mild TR, mild HTN, Gr1 DD; no wall motion abnl's. Continue to improve daily with high-dose systemic steroids and dual antibiotic therapy. States her breathing is improve and back to baseline, she was weaned off supplemental O2 2 days ago. Continues with cough nonproductive. At this point she is ambulatory and functional and is stable for discharge home. Physical Exam Vital Signs: Temp Pulse Resp BP Pulse Ox 97.4 F 98 14 144/59 H 96 10/31/16 12:33 10/31/16 13:50 10/31/16 13:50 10/31/16 12:32 10/31/16 13:50 Intake & Output 10/30/16 10/31/16 11/01/16 06:59 06:59 06:59 Intake Total 895 2566 474 Balance 895 2566 474 Weight 46 kg 45.3 kg EXAM GENERAL: NAD; well developed, very thin; no obese; alert and oriented to person , place, time, situation HEENT: normocephalic, atraumatic; no conjunctival injection, no scleral icterus ; oral mucosa moist; RESPIRATORY: no accessory muscle use, no increased WOB, good air entry bilaterally; no wheezes, diffuse rhonchi; diffuse inspiratory crackles CARDIO: no JVD; RRR; no systolic murmur; no tachycardia GI: soft; nondistended; normal bowel sounds; no hepato spleno megaly; no rebound, rigidity, guarding; nontender; tolerating diet VASCULAR: no carotid bruit; no abdominal bruit; no pallor; 2+ radial, DP pulse ; normal capillary refill EXTREMITIES: no calf tender; no palpable cords in calf; no clubbing, cyanosis , pedal edema PSYCH: normal affect, normal mood SKIN: warm; moist; no petechiae; no telengectasias; no jaundice; no rash Results Laboratory Results: 10/31/16 04:09 10/28/16 09:21 10/31/16 04:09 WBC 10.6 H RBC 2.50 L Hgb 9.0 L Hct 26.4 L MCV 106 H MCH 35.9 H MCHC 34.0 RDW 14.4 H Plt Count 387 Seg Neutrophils % Not Reportable Lymphocytes % Not Reportable Monocytes % Not Reportable Eosinophils % Not Reportable Basophils % Not Reportable Absolute Neutrophils Not Reportable Absolute Lymphocytes Not Reportable Absolute Monocytes Not Reportable Absolute Eosinophils Not Reportable Absolute Basophils Not Reportable 10/27/16 18:58 Clean Catch Midstream Urine Culture - Final Mixed Urogenital Sandy 10/28/16 10/28/16 10/29/16 09:21 19:30 01:34 Troponin I < 0.012 < 0.012 NT-Pro-B Natriuret Pep 1450 H 10/29/16 07:10 Troponin I < 0.012 NT-Pro-B Natriuret Pep Impressions: Chest X-Ray 10/27/16 17:09 IMPRESSION: Progressive but otherwise chronic appearing changes. Patient appears to have significant interstitial lung disease and pulmonary fibrosis. Chest/Abdomen CTA 10/28/16 11:32 IMPRESSION: No CT angio evidence of acute pulmonary emboli Airspace disease in the superior segment right lower lobe worrisome for pneumonia Advanced obstructive lung disease and pulmonary fibrosis Qualifiers PATEINT BEING DISCHARGED WITH ANY OF THE FOLLOWING DIAGNOSIS?: No Plan Discharge Plan: Discharged home on long steroid taper, continue antibiotic therapy, and close pulmonary follow-up as an outpatient. She expresses no concerns me about discharge home today. I spoke with her son David and likewise he is agreeable to discharge home today. Return to the emergency department for recurrent or worsening symptoms. Follow up with her primary care provider in 2 weeks, follow -up with pulmonology in one week
[2016-10-31] MEDS ORDERED: LEVOFLOXACIN 750 MG TABLET PO SCH (18:00)
== END 2016-10-31 16:15 | disposition home or self-care (01) | DRG 871 ==
LOC: ER 16:30 → EH 18:45 → 3W 10-28 16:29
PROVIDERS: ADMIT Emergency Medicine; ATTEND Emergency Medicine
DX: A41.9 Sepsis, unspecified organism (principal); J18.9 Pneumonia, unspecified organism; D63.8 Anemia in other chronic diseases classified elsewhere; J84.10 Pulmonary fibrosis, unspecified; D86.0 Sarcoidosis of lung; G40.909 Epilepsy, unspecified, not intractable, without status epilepticus; R79.89 Other specified abnormal findings of blood chemistry; Z98.890 Other specified postprocedural states; Z88.2 Allergy status to sulfonamides; Z79.899 Other long term (current) drug therapy
CPT/HCPCS: 36415; 36600; 71010; 71275; 80053; 80185; 81001; 82272; 82607; 82728; 82746; 82803; 83540; 83550; 83605; 83880; 84443; 84484; 85025; 85045; 87040; 87086; 87088; 87804; 93005; 93010; 93306; 96360; 99291; J0692; J1650; J1940; J1956; J3490; J7030; J7040; J7512; J7620